=== PATIENT | female | born 1990 | race Two or more races ===

== ENCOUNTER 2017-06-25 17:43 | Emergency (ER) | payer OTHER ==
[~2017-06-25] VITALS: Ht 167.6 cm; Wt 102.1 kg
[2017-06-25 18:21] VITALS: BP 147/75
[2017-06-25] MEDS ORDERED: Ketorolac 30mg Inj IM ONE (18:30)
[2017-06-25] MEDS ORDERED: Lidocaine 1% MPF 10mg/ml 5ml IM ONE (19:00)
[2017-06-25] MEDS ORDERED: Bacitracin Oint UD TOPIC ONE ×2 (19:45)
[2017-06-25] MEDS ORDERED: Tetanus/Diptheria/Pertussis Vaccine 0.5ml Syr IM ONE (19:45)
[2017-06-25] MEDS ORDERED: NAPROXEN500 M1 ORAL (20:00)
[2017-06-25] MEDS ORDERED: CEPHALEXIN500 MG ORAL (20:00)
--- NOTE | 2017-06-25 20:00 | Emergency Room Report ---
History of Present Illness General Chief Complaint: Laceration Source: Patient Present Illness HPI 26 y/o female c/o laceration to left index finger x 1 hour ago. 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 States it had some bleeding and was able to control bleeding with direct pressure and gauze. States she has FROM of finger and states TDAP is not UTD. Patient denies any numbness, tingling, pressure, paralysis, cyanosis, bruising, loss of sensation, or loss of range of motion.. Allergies: Coded Allergies: SULFA (SULFONAMIDE ANTIBIOTICS) (Verified Allergy, Intermediate, Hives, ) Patient History Past Medical History: see triage record Past Surgical History: none Pertinent Family History: none Last Menstrual Period: 05/26/17 Now: No : 0 Reviewed Nursing Documentation: PMH: Agreed, PSxH: Agreed Nursing Documentation-PMH Past Medical History: No History, Except For Review of Systems All Other Systems: negative except mentioned in HPI Physical Exam Vital Signs Date Time Temp Pulse Resp B/P (MAP) Pulse Ox O2 Delivery O2 Flow Rate FiO2 06/25/17 17:52 97.3 111 18 147/75 96 Room Air Sp02 EP Interpretation: reviewed, normal General Appearance: no apparent distress, alert, GCS 15, non-toxic Head: normocephalic, atraumatic ENT: hearing grossly normal, normal pharynx, no angioedema, normal voice Respiratory: normal breath sounds, no respiratory distress Cardiovascular #1: normal peripheral pulses, normal capillary refill Musculoskeletal: back normal, gait/station normal, normal range of motion, non- tender Neurologic: alert, oriented x3, responsive, motor strength/tone normal, sensory intact, speech normal Psychiatric: judgement/insight normal, memory normal, mood/affect normal, no suicidal/homicidal ideation Skin: normal color, no rash, warm/dry, well hydrated, laceration - 1cm superficial laceration of left index fingernail. Nail intact. Involvement does not extend beyond nail Lymphatic: no adenopathy Medical Decision Making PA Attestation Dr. Anderson is my supervising physician with whom patient management has been discussed with. Diagnostic Impression: Primary Impression: Laceration ER Course Pt. presents to the ED c/o laceration Ddx considered but are not limited to avulsion, laceration, abrasion, fracture, tendon rupture, contusion Vital signs: are WNL, pt. is afebrile H&PE are most consistent with nail laceration ORDERS: none required at this time, the diagnosis is clinical ED INTERVENTIONS: Toradol 30mg, wound care, bacitracin DISCHARGE: At this time pt. is stable for d/c to home. Will provide printed patient care instructions, and any necessary prescriptions. Care plan and follow up instructions have been discussed with the patient prior to discharge. Last Vital Signs Date Time Temp Pulse Resp B/P (MAP) Pulse Ox O2 Delivery O2 Flow Rate FiO2 06/25/17 18:21 97.3 18 147/75 96 Room Air 06/25/17 17:52 111 Disposition: HOME, SELF-CARE Condition: Stable Scripts Naproxen* (NAPROXEN*) 500 Mg Tablet.dr 500 MG ORAL TWICE A DAY for 10 Days, #20 TAB Prov: CHASE MAE 06/25/17 Cephalexin* (KEFLEX*) 500 Mg Capsule 500 MG ORAL EVERY 12 HOURS, #14 CAP 0 Refills Prov: CHASE MAE.Tripp 06/25/17 Patient Instructions: Laceration Care, Adult Additional Instructions: Take medication as directed. Patient instructed to take ibuprofen and tylenol as needed for pain. Patient to return for wound check in 2-3 days either here, urgent care or with PCP. Advised patient to keep site of infection elevated above the level of their heart 3 or 4 times a day, for 30 minutes each time to help reduce swelling. Patient is to keep the infected area clean and dry. They can take a shower or bath, but be sure to pat the area dry with a towel afterward. Patient instructed to not put any antibiotic ointments or creams on the area. Patient should come back sooner if their symptoms do not get better within 3 days of starting treatment or if the red area gets bigger, more swollen , or more painful. CHASE MAE Jun 25, 2017 20:00
[2017-06-25 20:21] VITALS: BP 135/71
[2017-06-25 20:45] VITALS: BP 135/71
== END 2017-06-25 20:50 | disposition home or self-care (01) ==
LOC: EMR 20:35
DX: S61.211A Laceration without foreign body of left index finger without damage to nail, initial encounter (principal); W26.0XXA Contact with knife, initial encounter; Y92.59 Other trade areas as the place of occurrence of the external cause; Z23 Encounter for immunization; Y99.0 Civilian activity done for income or pay
CPT/HCPCS: 90471; 90715; 96372; 99284; J1885